=== PATIENT | female | born 2000 | race African-American/Black ===

== ENCOUNTER 2023-02-16 07:15 | Emergency (ER) | payer SELFPAY ==
[2023-02-16] MEDS ORDERED: Ketorolac 30 MG/ML SDV IM ONE (07:46)
[2023-02-16] MEDS ORDERED: Ondansetron 4 MG Tab.DIS PO ONE (07:46)
== END 2023-02-16 08:23 | disposition home or self-care (01) ==
LOC: DL.ED 07:15
DX: S09.90XA Unspecified injury of head, initial encounter (principal); W00.0XXA Fall on same level due to ice and snow, initial encounter
CPT/HCPCS: 70450; 72125; 96372; 99283; A9270; J1885